=== PATIENT | female | born 1935 | race Caucasian/White ===

== ENCOUNTER → 2016-10-31 | Outpatient (CLI) | payer MEDICARE ==
[~2016-10-31] MED LIST: ALEN1TAB48 PO; AMLO5TAB2 PO; ASPI81CH3 CHEW; ATOR10TA15 PO; CALCTAB80 PO; CETI10 PO; CLON0.5T PO; CYAN25003 PO; FERR1TAB36 PO; HYOS0.37 PO; LISI-515 PO; LOPE7.5C PO; LOSA50TA PO; MELO-1 PO; MIRA25TA PO; MULT1TAB84 PO; NAPR220T95 PO; OCUVTAB PO; PANC3600 PO; REST0.05 EACH EYE; TRAM50TA PO; ZOLP10TA3 PO; ZYRT10CA PO; ZYRT10TA PO; vitamin b12 PO
[2016-10-31 13:17] LABS: MEAN CELL VOLUME 84.7 FL (80.0-100.0); MEAN CORPUSCULAR HEMOGLOBIN 28.4 PG (27.0-34.0); MEAN CORPUSCULAR HGB CONC 33.5 % (32.0-36.0); PLATELET COUNT 174 TH/MM3 (150-450); RED BLOOD COUNT 4.84 MIL/MM3 (4.00-5.30); RED CELL DISTRIBUTION WIDTH 13.6 % (11.6-17.2); REVIEW FLAG FINAL; WHITE BLOOD COUNT 5.5 TH/MM3 (4.0-11.0)
== END ==
LOC: PLAB 09:16
PROVIDERS: ATTEND Orthopaedic Surgery
DX: M23.241 Derangement of anterior horn of lateral meniscus due to old tear or injury, right knee (principal); M17.11 Unilateral primary osteoarthritis, right knee; I10 Essential (primary) hypertension
CPT/HCPCS: 36415; 85027

== ENCOUNTER → 2017-01-05 | Outpatient (CLI) | payer MEDICARE ==
[2017-01-05 12:29] LABS: MEAN CORPUSCULAR HEMOGLOBIN 28.7 PG (27.0-34.0); MEAN CORPUSCULAR HGB CONC 34.2 % (32.0-36.0); PLATELET COUNT 164 TH/MM3 (150-450); RED CELL DISTRIBUTION WIDTH 13.2 % (11.6-17.2); REVIEW FLAG FINAL; WHITE BLOOD COUNT 7.7 TH/MM3 (4.0-11.0)
[2017-01-05 13:04] LABS: ALKALINE PHOSPHATASE 99 U/L (45-117); ALT (GPT) 31 U/L (10-53); ANION GAP 8 MEQ/L (5-15); AST (GOT) 28 U/L (15-37); BICARBONATE 27.8 MEQ/L (21.0-32.0); BLOOD UREA NITROGEN 23 MG/DL (7-18); CHLORIDE 108 MEQ/L (98-107); GLOMERULAR FILTRATION RATE 56 ML/MIN (>89); GLUCOSE,FASTING 113 MG/DL (74-99); HDL CHOLESTEROL 58.7 MG/DL (40.0-60.0); LDL CHOLESTEROL 45 MG/DL (0-99); LDL CHOLESTEROL DIRECT 70 MG/DL (0-99); POTASSIUM 4.6 MEQ/L (3.5-5.1); SODIUM (NA) 144 MEQ/L (136-145); TOTAL BILIRUBIN ADULT 0.7 MG/DL (0.2-1.0)
[2017-01-05 13:45] LABS: HEMOGLOBIN A1a 0.7 %; HEMOGLOBIN A1b 1.6 %; HEMOGLOBIN Ao 85.3 %; HEMOGLOBIN P3 3.9 %
== END ==
LOC: PLAB 09:26
PROVIDERS: ATTEND Family Medicine
DX: E11.9 Type 2 diabetes mellitus without complications (principal); R53.83 Other fatigue; I10 Essential (primary) hypertension; E78.00 Pure hypercholesterolemia, unspecified
CPT/HCPCS: 36415; 80053; 80061; 83036; 83721; 84443; 85027

== ENCOUNTER → 2017-04-06 | Outpatient (CLI) | payer MEDICARE ==
[~2017-04-06] MED LIST changes: -CETI10 PO; -PANC3600 PO; -ZYRT10CA PO; -vitamin b12 PO
[2017-04-06 11:18] LABS: HEMATOCRIT 44.6 % (35.0-46.0); MEAN CELL VOLUME 85.7 FL (80.0-100.0); MEAN CORPUSCULAR HEMOGLOBIN 28.3 PG (27.0-34.0); PLATELET COUNT 143 TH/MM3 (150-450); RED CELL DISTRIBUTION WIDTH 13.6 % (11.6-17.2); REVIEW FLAG FINAL; WHITE BLOOD COUNT 6.9 TH/MM3 (4.0-11.0)
[2017-04-06 11:50] LABS: ANION GAP 9 MEQ/L (5-15); AST (GOT) 23 U/L (15-37); BICARBONATE 29.1 MEQ/L (21.0-32.0); BLOOD UREA NITROGEN 19 MG/DL (7-18); CHLORIDE 107 MEQ/L (98-107); GLOMERULAR FILTRATION RATE 62 ML/MIN (>89); GLUCOSE,FASTING 82 MG/DL (74-99); POTASSIUM 4.3 MEQ/L (3.5-5.1); SODIUM (NA) 145 MEQ/L (136-145)
[2017-04-06 12:02] LABS: ALKALINE PHOSPHATASE 98 U/L (45-117); ALT (GPT) 29 U/L (10-53); HDL CHOLESTEROL 61.6 MG/DL (40.0-60.0); LDL CHOLESTEROL 54 MG/DL (0-99); LDL CHOLESTEROL DIRECT 51 MG/DL (0-99); TOTAL BILIRUBIN ADULT 0.5 MG/DL (0.2-1.0)
[2017-04-06 16:28] LABS: HEMOGLOBIN A1a 0.8 %; HEMOGLOBIN A1b 1.6 %; HEMOGLOBIN Ao 85.3 %; HEMOGLOBIN LA1C 1.8 %; HEMOGLOBIN P3 3.9 %
== END ==
LOC: PLAB 09:58
PROVIDERS: ATTEND Family Medicine
DX: E11.9 Type 2 diabetes mellitus without complications (principal); R53.83 Other fatigue; E78.2 Mixed hyperlipidemia; I10 Essential (primary) hypertension
CPT/HCPCS: 36415; 80053; 80061; 83036; 83721; 84443; 85027

== ENCOUNTER 2017-05-30 08:47 | Emergency (ER) | payer MEDICARE ==
[2017-05-30 08:52] VITALS: BP 222/100; PULSE 66; RESP 18; TEMP 97.6
[2017-05-30 09:00] VITALS: RESP 18; O2SAT 99
[2017-05-30] MEDS ORDERED: SODIUM CHLOR 0.9% 1000 ML INJ 1,000 ML IV ONE (09:00)
[2017-05-30] MEDS ORDERED: ONDANSETRON HCL 4 MG/2 ML VIAL IVP ONE (09:00)
[2017-05-30] MEDS ORDERED: ENALAPRILAT 1.25 MG/ML VIAL IV PUSH ONE (09:00)
[2017-05-30] MEDS ORDERED: SODIUM CHLORIDE 0.9% FLUSH 10 ML FLUSH IVF PRN (09:00)
--- NOTE | 2017-05-30 09:01 | PD ---
HPI Chief Complaint: GI Complaint Time Seen by Provider: 08:50 Travel History International Travel<30 days: No Contact w/Intl Traveler<30days: No Traveled to known affect area: No History of Present Illness HPI The patient was seen and examined in the presence of the nurse. This patient is brought in by paramedics for 36 hours of nausea and vomiting and abdominal pain. Discomfort is in the right upper and left upper quadrants. She is not amenable to take her blood pressure medication today or yesterday due to vomiting. She did not have any fever or diarrhea today. She thinks she had an episode of diarrhea yesterday but says she "can't remember". Symptoms are moderately severe. No alleviating factors. She has no appendix and has had hernia surgery PFSH Past Medical History Hx Anticoagulant Therapy: Yes (ASPIRIN) Arthritis: Yes Blood Disorders: No Heart Rhythm Problems: No Cancer: No Cardiac Catheterization: No Cardiovascular Problems: Yes (HTN, CHOL) High Cholesterol: Yes Congestive Heart Failure: No Cerebrovascular Accident: No Diabetes: Yes (BORDERLINE) Diminished Hearing: Yes (BILAT HEARING AIDES) Endocrine: Yes Gastrointestinal Disorders: Yes (IBS) Glaucoma: Yes Genitourinary: No Headaches: Yes Hypertension: Yes Immune Disorder: No Inguinal Hernia: Yes Musculoskeletal: Yes Neurologic: Yes Psychiatric: No Reproductive: No Respiratory: No Seizures: No Menopausal: Yes Past Surgical History Abdominal Surgery: Yes (UMBILICAL HERNIA REPAIR, COLOSTOMY WITH REVERSAL, HERNIA SX X5) Appendectomy: Yes Coronary Artery Bypass Graft: No Genitourinary Surgery: Yes (BLADDER LIFT) Gynecologic Surgery: Yes (HYST-1984) Hysterectomy: Yes Oral Surgery: Yes (TONSILS-1941, APPY-1950; ) Pacemaker: No Tonsillectomy: Yes Other Surgery: Yes (DEVIATED SEPTUM-1959;) Social History Alcohol Use: Yes (OCC) Tobacco Use: No Substance Use: No Allergies-Medications (Allergen,Severity, Reaction): Coded Allergies: Hydrocodone (Verified Allergy, Severe, Nausea/Vomiting, 03/06/17) Lobster (Verified Allergy, Severe, VOMITING, 03/06/17) Morphine (Verified Allergy, Severe, VOMITING, 03/06/17) Dairy (Verified Allergy, Intermediate, Diarrhea, 03/06/17) *MDRO Multi-Drug Resistant Organism (Verified Allergy, Unknown, 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 Not to exceed 8 tablets per day. Aleve (Naproxen Sodium) 220 Mg Tab 440 Mg PO PRN PRN Myrbetriq (Mirabegron) 25 Mg Tab 25 Mg PO DAILY Zyrtec Allergy (Cetirizine HCl) 10 Mg Tab 10 Mg PO DAILY Restasis Opth 0.05% (Cyclosporine Opth 0.05%) 0.05% Emul 2 Drop EACH EYE BID Iron (Ferrous Sulfate) 325 Mg Tab 325 Mg PO DAILY Take Calcium 1000 + D (Calcium Carbonate-Cholecalciferol) 1,000-800 Mg-Unit Tab 1 Tab PO BID Multivitamin Adults (Multiple Vitamins W/ Minerals) 1 Tab 1 Tab PO DAILY Ocuvite (Multiple Vitamins W/ Minerals) 1 Tab 1 Tab PO DAILY Meloxicam 15 Mg Tab 15 Mg PO DAILY Aspirin 81 Low Dose (Aspirin) 81 Mg Chew 81 Mg CHEW DAILY Lisinopril 20 Mg Tab 20 Mg PO BID Hyoscyamine ER 12 HR (Hyoscyamine Sulfate) 0.375 Karli 0.375 Mg PO BID Alendronate (Alendronate Sodium) 70 Mg Tab 70 Mg PO Q7D Clonazepam 0.5 Mg Tab 0.5 Mg PO DAILY Atorvastatin (Atorvastatin Calcium) 10 Mg Tab 10 Mg PO HS Amlodipine (Amlodipine Besylate) 5 Mg Tab 5 Mg PO DAILY Losartan (Losartan Potassium) 50 Mg Tab 50 Mg PO DAILY Review of Systems General / Constitutional: No: Fever Eyes: No: Visual changes HENT: No: Headaches Cardiovascular: No: Chest Pain or Discomfort Respiratory: No: Shortness of Breath Gastrointestinal: Positive: Nausea, Vomiting, Abdominal Pain Genitourinary: No: Dysuria Musculoskeletal: No: Pain Skin: No Rash Neurologic: No: Weakness Psychiatric: No: Depression Endocrine: No: Polydipsia Hematologic/Lymphatic: No: Easy Bruising Physical Exam Narrative GENERAL: Well-nourished, well-developed patient with vomiting or abdominal pain. SKIN: Focused skin assessment reveals no rash and nodules. Skin is Warm and dry. HEAD: Atraumatic. Normocephalic. EYES: Pupils equal and round. No scleral icterus. No injection or drainage. ENT: No nasal bleeding or discharge. Mucous membranes pink and moist. NECK: Trachea midline. No JVD. CARDIOVASCULAR: Regular rate and rhythm. No murmur appreciated. RESPIRATORY: No accessory muscle use. Clear to auscultation. Breath sounds equal bilaterally. GASTROINTESTINAL: Abdomen soft, there is some left upper and right upper quadrant tenderness without rebound or guarding. Well-healed surgical scars. Abdomen is nondistended. Hepatic and splenic margins not palpable. MUSCULOSKELETAL: No obvious deformities. No clubbing. No cyanosis. No edema. NEUROLOGICAL: Awake and alert. No obvious cranial nerve deficits. Motor grossly within normal limits. Normal speech. PSYCHIATRIC: Appropriate mood and affect; insight and judgment normal. Data Data Last Documented VS Vital Signs Date Time Temp Pulse Resp B/P Pulse Ox O2 Delivery O2 Flow Rate FiO2 05/30/17 10:00 68 209/88 05/30/17 09:00 18 99 Room Air 05/30/17 08:52 97.6 Orders Complete Blood Count With Diff (05/30/17 08:52) Comprehensive Metabolic Panel (05/30/17 08:52) Lipase (05/30/17 08:52) Ct Abd/Pel W Iv Contrast(Rout) (05/30/17 ) Iv Access Insert/Monitor (05/30/17 08:52) Ecg Monitoring (05/30/17 08:52) Oximetry (05/30/17 08:52) NPO (05/30/17 08:52) Ondansetron Inj (Zofran Inj) (05/30/17 09:00) Sodium Chloride 0.9% Flush (Ns Flush) (05/30/17 09:00) Sodium Chlor 0.9% 1000 Ml Inj (Ns 1000 M (05/30/17 09:00) Enalaprilat Inj (Vasotec Inj) (05/30/17 09:00) Promethazine Inj (Phenergan Inj) (05/30/17 09:15) Prothrombin Time / Inr (Pt) (05/30/17 09:02) Act Partial Throm Time (Ptt) (05/30/17 09:02) Oral Contrast - Adult (05/30/17 09:18) Diatrizoate Jolantaq (Md Aviva Wild) (05/30/17 09:31) Iohexol 350 Inj (Omnipaque 350 Inj) (05/30/17 11:03) Labs Laboratory Tests Test 05/30/17 09:19 White Blood Count 7.0 TH/MM3 Red Blood Count 4.99 MIL/MM3 Hemoglobin 14.3 GM/DL Hematocrit 42.1 % Mean Corpuscular Volume 84.4 FL Mean Corpuscular Hemoglobin 28.7 PG Mean Corpuscular Hemoglobin 34.0 % Concent Red Cell Distribution Width 12.5 % Platelet Count 155 TH/MM3 Mean Platelet Volume 10.0 FL Neutrophils (%) (Auto) 79.4 % Lymphocytes (%) (Auto) 11.8 % Monocytes (%) (Auto) 6.5 % Eosinophils (%) (Auto) 1.9 % Basophils (%) (Auto) 0.4 % Neutrophils # (Auto) 5.6 TH/MM3 Lymphocytes # (Auto) 0.8 TH/MM3 Monocytes # (Auto) 0.5 TH/MM3 Eosinophils # (Auto) 0.1 TH/MM3 Basophils # (Auto) 0.0 TH/MM3 CBC Comment DIFF FINAL Differential Comment Prothrombin Time 11.9 SEC Prothromb Time International 1.1 RATIO Ratio Activated Partial 23.3 SEC Thromboplast Time Sodium Level 144 MEQ/L Potassium Level 3.7 MEQ/L Chloride Level 111 MEQ/L Carbon Dioxide Level 24.8 MEQ/L Anion Gap 8 MEQ/L Blood Urea Nitrogen 15 MG/DL Creatinine 0.78 MG/DL Estimat Glomerular Filtration 71 ML/MIN Rate Random Glucose 115 MG/DL Calcium Level 8.8 MG/DL Total Bilirubin 0.9 MG/DL Aspartate Amino Transf 24 U/L (AST/SGOT) Alanine Aminotransferase 23 U/L (ALT/SGPT) Alkaline Phosphatase 85 U/L Total Protein 7.0 GM/DL Albumin 3.5 GM/DL Lipase 147 U/L MDM Medical Decision Making Medical Screen Exam Complete: Yes Emergency Medical Condition: Yes Medical Record Reviewed: Yes Differential Diagnosis Colitis, ileus, obstruction, cholecystitis, food poisoning Narrative Course I have reviewed the patient's electronic medical record. IV placed I gave her IV Zofran and IM Phenergan and 1 L normal saline IV CBC is normal metabolic profile is normal LFT's are normal lipase is normal CT of abdomen and pelvis with IV contrast shows nothing emergent but multiple incidental findings which I reviewed with the patient. I encouraged her to discuss them with Dr. Nunez her primary physician. Zofran prescribed I have recommended clear liquids for 24 hours, then gradually advance as tolerated. Diagnosis Primary Impression: Acute bilateral upper abdominal pain Additional Impression: Nausea and vomiting in adult patient Additional Instructions: The patient was advised to follow up with their physician and return if they worsen. I have recommended clear liquids for 24 hours, then gradually advance as tolerated. Med/Other Pt SpecificInfo: Prescription(s) given Scripts Ondansetron (Zofran)4 Mg Tab4 Mg PO Q6HR PRN (NAUSEA OR VOMITING) #12 TAB Ref 0 Prov:Alvin Linn MD 05/30/17 Disposition: 01 DISCHARGE HOME Condition: Stable Alvin Linn MD May 30, 2017 09:01
[2017-05-30] MEDS ORDERED: PROMETHAZINE INJ 25 MG/ML VIAL IM ONE (09:15)
[2017-05-30] MEDS ORDERED: DIATRIZOATE MEGLUM/DIATRIZOATE SOD 9 ML CUP ONE (09:31)
[2017-05-30 09:40] LABS: AUTOMATED NEUTROPHIL # 5.6 TH/MM3 (1.8-7.7); BASOPHIL % 0.4 % (0.0-2.0); EOSINOPHIL # 0.1 TH/MM3 (0-0.4); EOSINOPHIL % 1.9 % (0.0-4.0); HEMATOCRIT 42.1 % (35.0-46.0); HEMO FLAGS DIFF FINAL; LYMPH % 11.8 % (9.0-44.0); LYMPHOCYTE # 0.8 TH/MM3 (1.0-4.8); MEAN CELL VOLUME 84.4 FL (80.0-100.0); MEAN CORPUSCULAR HEMOGLOBIN 28.7 PG (27.0-34.0); MONO % 6.5 % (0.0-8.0); NEUT % 79.4 % (16.0-70.0); PLATELET COUNT 155 TH/MM3 (150-450); RED BLOOD COUNT 4.99 MIL/MM3 (4.00-5.30); RED CELL DISTRIBUTION WIDTH 12.5 % (11.6-17.2)
[2017-05-30 09:51] LABS: APTT (PATIENT) 23.3 SEC (24.3-30.1); INTERNATIONAL NORMALIZED RATIO 1.1 RATIO; PROTHROMBIN TIME - PATIENT 11.9 SEC (9.8-11.6)
[2017-05-30 09:52] LABS: BICARBONATE 24.8 MEQ/L (21.0-32.0); BLOOD UREA NITROGEN 15 MG/DL (7-18)
[2017-05-30 09:55] LABS: ALT (GPT) 23 U/L (10-53); AST (GOT) 24 U/L (15-37); GLOMERULAR FILTRATION RATE 71 ML/MIN (>89)
[2017-05-30 09:56] LABS: TOTAL BILIRUBIN ADULT 0.9 MG/DL (0.2-1.0)
[2017-05-30 09:58] LABS: ALKALINE PHOSPHATASE 85 U/L (45-117)
[2017-05-30 10:00] VITALS: BP 209/88; PULSE 68
[2017-05-30 10:00] LABS: ANION GAP 8 MEQ/L (5-15); CHLORIDE 111 MEQ/L (98-107); POTASSIUM 3.7 MEQ/L (3.5-5.1); SODIUM (NA) 144 MEQ/L (136-145)
[2017-05-30] MEDS ORDERED: IOHEXOL 350 MG/ML 10 ML VIAL (for RAD DIAG) IV ONE (11:03)
--- NOTE | 2017-05-30 11:14 | RADRPT ---
EXAM DATE/TIME: 05/30/2017 10:37 [facility] COMPARISON: CT ABDOMEN & PELVIS W/O CONTRAST, January 14, 2014, 0:45. INDICATIONS : Nausea,vomiting, abdominal pain. IV CONTRAST: 100 cc Omnipaque 350 (iohexol) IV ORAL CONTRAST: Prescribed oral contrast ingested. RADIATION DOSE: 17.03 CTDIvol (mGy) MEDICAL HISTORY : Hypertension. Irritable bowel syndrome. SURGICAL HISTORY : Colostomy. Umbilical hernia repair.Hysterectomy.Back. ENCOUNTER: Initial ACUITY: 3 days PAIN SCALE: 5/10 LOCATION: Bilateral abdomen TECHNIQUE: Volumetric scanning of the abdomen and pelvis was performed. Using automated exposure control and ad justment of the mA and/or kV according to patient size, radiation dose was kept as low as reasonably achievable to obtain optimal diagnostic quality images. DICOM format image data is available electro nically for review and comparison. FINDINGS: LOWER LUNGS: The visualized lower lungs are clear. LIVER: Homogeneous density with 5 mm low-density lesion at the liver dome that is too small to characterize. There is a 19 mm cyst in the left lobe. There is no dilation of the biliary tree. No calcified gal lstones. SPLEEN: Normal size without lesion. PANCREAS: Within normal limits. KIDNEYS: Normal in size and shape. There is no mass, stone or hydronephrosis. There are bilateral renal low d ensity lesions are characteristic of cysts. The largest in the right kidney measures 4.8 cm and the l argest in the left kidney measures 8 cm. ADRENAL GLANDS: Within normal limits. VASCULAR: There is no aortic aneurysm. There is a moderate to severe atherosclerotic disease. BOWEL/MESENTERY: The stomach, small bowel, and colon demonstrate no acute abnormality. There is no free intraperitone al air or fluid. A small hiatal hernia is present. There is sigmoid diverticulosis. ABDOMINAL WALL: Postsurgical changes are present anteriorly. RETROPERITONEUM: There is no lymphadenopathy. BLADDER: No wall thickening or mass. Calcification adjacent to the urethra may represent a stone in a urethral diverticulum. Small loculate air is present within the urinary bladder lumen. REPRODUCTIVE: Uterus is absent. No adnexal abnormality is visualized. INGUINAL: There is no lymphadenopathy or hernia. MUSCULOSKELETAL: There is a dextroscoliosis with degenerative change and there are is posterior hardware consisting of pedicular screws at L3 and L4. Bone graft harvest site is visualized on the right posterior iliac bryan ne. CONCLUSION: 1. No acute finding is identified within the abdomen or pelvis to explain the clinical symptoms. 2. Small locule of air in the urinary bladder. Presumably this is related to recent catheterization. There are no other findings present to suggest a fistula. 3. Nonacute findings include multiple bilateral renal cysts, moderate to severe atherosclerotic disea se, small hiatal hernia, sigmoid diverticulosis, and possible urethral diverticulum. Wero Moyer MD on May 30, 2017 at 11:05 Board Certified Radiologist. This report was verified electronically.
[2017-05-30] MEDS ORDERED: ZOFR4TAB PO (11:33)
[2017-05-30 11:56] VITALS: BP 165/80
== END 2017-05-30 11:57 | disposition home or self-care (01) ==
LOC: PHED 08:47
DX: R10.11 Right upper quadrant pain (principal); R10.12 Left upper quadrant pain; R11.2 Nausea with vomiting, unspecified; I10 Essential (primary) hypertension
CPT/HCPCS: 74177; 80053; 83690; 85025; 85610; 85730; 96361; 96372; 96374; 96375; 99285; J2405; J2550; J7030; Q9963; Q9967

== ENCOUNTER → 2017-07-02 | Outpatient (CLI) | payer MEDICARE ==
[~2017-07-02] MED LIST changes: +ALEV220T14 PO; +CETI10 PO; +FERR325C PO; +LOPE-1 PO; +MULTTAB67 PO; +OXYB10TA PO; +TRAZ50TA12 PO; +VITA20004 PO; +ZOFR4TAB PO
[2017-07-02 11:42] LABS: AUTOMATED NEUTROPHIL # 3.9 TH/MM3 (1.8-7.7); BASOPHIL % 0.4 % (0.0-2.0); EOSINOPHIL # 0.2 TH/MM3 (0-0.4); EOSINOPHIL % 3.7 % (0.0-4.0); HEMATOCRIT 40.2 % (35.0-46.0); HEMO FLAGS DIFF FINAL; LYMPH % 19.1 % (9.0-44.0); LYMPHOCYTE # 1.1 TH/MM3 (1.0-4.8); MEAN CELL VOLUME 84.8 FL (80.0-100.0); MEAN CORPUSCULAR HEMOGLOBIN 29.2 PG (27.0-34.0); MEAN CORPUSCULAR HGB CONC 34.4 % (32.0-36.0); NEUT % 67.8 % (16.0-70.0); PLATELET COUNT 156 TH/MM3 (150-450); RED BLOOD COUNT 4.74 MIL/MM3 (4.00-5.30); RED CELL DISTRIBUTION WIDTH 12.5 % (11.6-17.2); WHITE BLOOD COUNT 5.8 TH/MM3 (4.0-11.0)
--- NOTE | 2017-07-03 11:58 | EKG ---
Date Performed: 07/02/2017 Time Performed: 11:19:32 PTAGE: 82 years EKG: SINUS BRADYCARDIA LEFT AXIS DEVIATION ABNORMAL ECG PREVIOUS TRACING : 06/17/2016 23.17 No significant change from previous tracing noted. DOCTOR: Manas Mathias Interpretating Date/Time 07/03/2017 11:56:21
== END ==
LOC: PHPRE 10:05
PROVIDERS: ATTEND Ophthalmology
DX: Z01.810 Encounter for preprocedural cardiovascular examination (principal); Z01.812 Encounter for preprocedural laboratory examination; I10 Essential (primary) hypertension; R94.31 Abnormal electrocardiogram [ECG] [EKG]
CPT/HCPCS: 36415; 85025; 93005

== ENCOUNTER → 2017-07-09 | Outpatient (CLI) | payer MEDICARE ==
[~2017-07-09] MED LIST changes: -CYAN25003 PO; -FERR1TAB36 PO; -LOPE7.5C PO; -MIRA25TA PO; -MULT1TAB84 PO; -NAPR220T95 PO; -TRAM50TA PO; -ZOLP10TA3 PO; -ZYRT10TA PO
[2017-07-09 13:11] LABS: HEMATOCRIT 42.2 % (35.0-46.0); MEAN CELL VOLUME 87.3 FL (80.0-100.0); MEAN CORPUSCULAR HEMOGLOBIN 29.5 PG (27.0-34.0); MEAN CORPUSCULAR HGB CONC 33.8 % (32.0-36.0); PLATELET COUNT 150 TH/MM3 (150-450); RED BLOOD COUNT 4.83 MIL/MM3 (4.00-5.30); RED CELL DISTRIBUTION WIDTH 13.4 % (11.6-17.2); REVIEW FLAG FINAL; WHITE BLOOD COUNT 5.9 TH/MM3 (4.0-11.0)
[2017-07-09 13:27] LABS: ANION GAP 3 MEQ/L (5-15); AST (GOT) 22 U/L (15-37); BICARBONATE 31.5 MEQ/L (21.0-32.0); BLOOD UREA NITROGEN 24 MG/DL (7-18); CHLORIDE 106 MEQ/L (98-107); GLOMERULAR FILTRATION RATE 73 ML/MIN (>89); GLUCOSE,FASTING 87 MG/DL (74-99); POTASSIUM 3.9 MEQ/L (3.5-5.1); SODIUM (NA) 140 MEQ/L (136-145)
[2017-07-09 13:39] LABS: ALKALINE PHOSPHATASE 90 U/L (45-117); ALT (GPT) 21 U/L (10-53); HDL CHOLESTEROL 59.6 MG/DL (40.0-60.0); LDL CHOLESTEROL 38 MG/DL (0-99); LDL CHOLESTEROL DIRECT 49 MG/DL (0-99); TOTAL BILIRUBIN ADULT 0.5 MG/DL (0.2-1.0)
[2017-07-09 16:17] LABS: HEMOGLOBIN A1a 0.9 %; HEMOGLOBIN A1b 1.5 %; HEMOGLOBIN Ao 86.2 %; HEMOGLOBIN LA1C 1.9 %; HEMOGLOBIN P3 3.7 %
== END ==
LOC: PLAB 09:32
PROVIDERS: ATTEND Family Medicine
DX: E11.9 Type 2 diabetes mellitus without complications (principal); R53.83 Other fatigue; E78.2 Mixed hyperlipidemia; I10 Essential (primary) hypertension
CPT/HCPCS: 36415; 80053; 80061; 83036; 83721; 84443; 85027

== ENCOUNTER → 2017-07-20 | Day surgery (SDC) | payer MEDICARE ==
--- NOTE | 2017-07-14 11:25 | MH ---
cc: [facility], DON DOMÍNGUEZ DATE OF ADMISSION: 07/20/2017 ADMISSION DIAGNOSIS Cataract, right eye. HISTORY OF PRESENT ILLNESS This 82-year-old white female is coming through [facility] for the purpose of a lens extraction of the right eye with intraocular lens implant under local anesthesia. She has noticed decreasing visual acuity interfering with her daily activities and elected to have the above procedure. Her best-corrected visual acuity in room light is 20/40 in the right eye and 20/40 -2 in the left. PAST MEDICAL HISTORY The patient has a history of hypertension, arthritis, allergies, back problems, right shoulder problems, cholesterol problems and food poisoning. PAST SURGICAL HISTORY Her surgical history includes tonsillectomy, appendectomy, hysterectomy, hernia surgery, bowel surgery twice, right knee arthroscopic surgery, urinary surgery, right shoulder torn ligament surgery, right knee surgery a second time. MEDICATIONS Daily medications include: 1. Losartan. 2. Amlodipine. 3. Atorvastatin. 4. Clonazepam. 5. Alendronate. 6. Hyoscyamine. 7. Lisinopril. 8. Baby aspirin. 9. Meloxicam. 10. Ocuvite. 11. Cetirizine. 12. Multivitamins. 13. Calcium with D. 14. Iron. 15. Vitamin-B12. 16. Restasis eye drops twice a day. 17. Aleve. 18. Imodium. 19. Zyrtec p.r.n. 20. Zolpidem. 21. Trazodone. 22. Tramadol. 23. Oxybutynin. ALLERGIES 1. CODEINE AND ITS DERIVATIVES. 2. HYDROCODONE. 3. LOBSTER. 4. DAIRY. SOCIAL HISTORY She does not smoke or drink. FAMILY HISTORY Positive for mother and sister with cataract. REVIEW OF SYSTEMS HEAD: The patient had a head injury on June 04. She hit her head on a shelf. Patient denies severe headaches or dizziness. EARS: She has hearing loss. Denies ear pain, discharge or ringing in the ears. NOSE: Patient denies nasal discharge, obstruction or frequent colds. MOUTH AND THROAT: Patient denies soreness of the mouth or tongue, bleeding gums, trouble swallowing, changes in voice or sore throat. NECK: Patient denies neck pain or swelling, limitation of neck movement or neck injury. CARDIOPULMONARY SYSTEM: She gets some sputum production from postnasal drip with her allergies. Denies shortness of breath, orthopnea, chronic cough, hemoptysis, chest pain, wheezing, palpitations or light-headedness. GI SYSTEM: She has a poor appetite and hemorrhoids. Denies nausea, vomiting, abdominal pain, ulcers, or change in bowel habits. SYSTEM: She has urinary frequency, taking the oxybutynin, gets up at night once to urinate. Denies dysuria or change in urine color. NERVOUS SYSTEM: Patient denies convulsions, vertigo, stroke, numbness or weakness. PHYSICAL EXAMINATION VITAL SIGNS: Blood pressure 134/90, pulse 72, respirations 20. HEAD: Normocephalic, atraumatic. NOSE: Without rhinorrhea. THROAT: Clear. NECK: Supple. CHEST: Clear. HEART: Regular rhythm. ABDOMEN: Without tenderness. EXTREMITIES: Without edema. NEUROLOGIC: Within normal limits. MENTAL STATUS: Within normal limits. EYE EXAM: The patient's best-corrected visual acuity in room light is 20/40 in the right eye and 20/40 -2 in the left. Visual mccollum are full to confrontation testing. Extraocular muscle exam reveals full versions with orthophoria at distance and near. Pupils are 4 mm equal, round, reactive to light without afferent defect. Anterior segment examination reveals a corneal opacity inferiorly in the right eye. There are nuclear sclerotic and cortical cataract changes bilaterally. Intraocular pressure is 20 in each eye by applanation tonometry. Dilated fundus exam revealed sharp disks with cup-to-disk ratio of 0.35 in the right eye and 0.5 in the left. The macula has some granularity present in both eyes. A posterior vitreous detachment is present bilaterally with a vitreous floater in the right eye. IMPRESSION 1. Bilateral cataracts. 2. Posterior vitreous detachment, both eyes. 3. History of branch retinal vein occlusion, right eye. 4. Glaucoma suspect, high-risk. PLAN Lens extraction of the right eye with intraocular lens implant under local anesthesia through [facility]. The patient has been cleared medically. She has been counseled as to the risks, benefits and alternatives and elected to proceed. I feel that cataract surgery will improve the quality of life and activities of daily living in this patient. MD BERNABE Maxwell/HALLE /10:48 AM /11:08 AM
[~2017-07-20] VITALS: Ht 162.6 cm; Wt 72.0 kg
[~2017-07-20] MED LIST changes: +ACETYLCHOLINE CHL OPHT SOLN 1:100 2 ML VIAL ONE; +CHLORHEXIDINE GLUCONATE 2 % 1 PACK (2 CLOTHS) TOPICAL PRN; +EPINEPHrine HCL (1:1000) 1 MG/ML VIAL ONE; +HYALURONIDASE/LIDOCAINE/BUPIVACAINE 4.5 ML SYR RIGHT EYE ONE; +HYALURONIDASE/LIDOCAINE/BUPIVACAINE 6 ML SYR RIGHT EYE ONE; +INSULIN HUMAN REGULAR 1,000 UNITS/10 ML VIAL SQ PRN; +LACTATED RINGER'S 1000 ML IV PRN; +METOPROLOL TARTRATE 25 MG TAB PO PRN; +PILOCARPINE HCL 2% OPHT SOLN 15 ML BTL ONE; +POVIDONE IODINE 5% (ANTISEPSIS KIT) 4 APPLICATIONS EACH NARE PRN; +PROPARACAINE HCL 0.5% OPHT SOLN 15 ML BTL RIGHT EYE ONE; +PROPOFOL 200 MG/20 ML AMP ONE; +SODIUM CHLORID 0.9% 500 ML IV PRN; +TOBRAMYCIN/DEXAMETHASONE OPTH OINT 3.5 GM TUBE ONE; +VISCOAT OPHT IRRIG SOLN 0.75 ML SYRINGE ONE; +acetaZOLAMIDE SEQUELS 500 MG SUSTAINED RELEASE CAP ONE; +hydrALAZINE HCL 20 MG/ML VIAL IV ONE
[2017-07-20 08:17] VITALS: PULSE 73
[2017-07-20] MEDS: TROPICAMIDE 1% OPHT SOLN 15 ML BTL RIGHT EYE SCH ×4 (08:35→08:44)
[2017-07-20] MEDS: DICLOFENAC SOD 0.1% OPHT SOLN 2.5 ML BTL RIGHT EYE SCH ×4 (08:35→08:44)
[2017-07-20] MEDS: CYCLOPENTOLATE HCL 1% OPHT SOLN 2 ML BTL RIGHT EYE SCH ×4 (08:35→08:44)
[2017-07-20] MEDS: PHENYLEPHRINE HCL 2.5% OPTH SOLN 2 ML BTL RIGHT EYE SCH ×4 (08:35→08:44)
[2017-07-20] MEDS: GATIFLOXACIN 0.5% OPHT SOLN 2.5 ML BTL RIGHT EYE SCH ×4 (08:35→08:44)
[2017-07-20 09:10] VITALS: PULSE 73
[2017-07-20 09:15] VITALS: PULSE 80
[2017-07-20 09:30] VITALS: PULSE 85
[2017-07-20 11:25] VITALS: TEMP 98.1
[2017-07-20 11:50] VITALS: BP 155/91; PULSE 74; RESP 16; O2SAT 100
--- NOTE | 2017-07-20 12:48 | MP ---
cc: DON CARDOSO DATE OF SURGERY July 20, 2017 PREOPERATIVE DIAGNOSIS: Cataract right eye. POSTOPERATIVE DIAGNOSIS: Cataract right eye. OPERATION: Extracapsular cataract extraction with posterior chamber intraocular lens implant by phacoemulsification, right eye. SURGEON: Don Cardoso M.D. ANESTHESIA: Local. COMPLICATIONS: None. INDICATIONS: See history and physical previously dictated. OPERATIVE PROCEDURE: The patient had adequate retrobulbar and eyelid blocks administered in the holding area and was brought to the operating room. The right eye was prepped and draped in the usual sterile ophthalmic manner. A lid speculum was inserted in the right eye. A 4-0 silk bridle suture was placed through the conjunctiva near the superior rectus muscle and it was tagged to the drape. A fornix-based conjunctival flap was prepared spanning approximately 5 mm in width. Hemostasis was obtained with wet-field cautery. A 3.5 mm groove was made 1 mm from the limbus and dissected up to the limbus in the form of a scleral pocket incision. A stab incision was then made at the 2 o'clock position. Viscoelastic was injected into the anterior chamber. The anterior chamber was entered with a 2.75 mm keratome through the scleral pocket incision. A 360 degree continuous curvilinear capsulorrhexis was then performed. Hydrodissection was utilized to divide the nucleus into inner and outer components and to separate the cortex from the capsule. Phacoemulsification was then utilized to remove the nucleus. The outer nuclear layer was removed with irrigation and aspiration and short bursts of ultrasound as necessary. The cortex was removed with the irrigation/aspiration handpiece. The posterior capsule was polished with the capsule polisher. Viscoelastic was injected into the capsular bag. The intraocular lens was inspected and found to be in good condition. The lens utilized was an Fredrick, model number [id number] with a power of +23 diopters. The lens was inserted into the capsular bag. The viscoelastic in the anterior chamber was then removed with the irrigation-aspiration handpiece. Viscoelastic was also removed from beneath the intraocular lens. The anterior chamber was filled with Miochol-E through the stab incision and pressurized. The wound was checked for leaks at this pressure and normalized pressure and there were none. The 4-0 bridle suture was removed. The conjunctival flap was brought down over the wound and secured with cautery. Pilocarpine 2% eye drops were instilled topically. The lid speculum was removed. TobraDex ophthalmic ointment was applied. The eye was double patched and shielded. The patient tolerated the procedure well and left the Operating Room in satisfactory condition. DonMD BERNABE Erickson/[place] /11:26 AM /12:41 PM
== END | disposition home or self-care (01) ==
LOC: PHSDC 07:46
PROVIDERS: ATTEND Ophthalmology
DX: H26.9 Unspecified cataract (principal); I10 Essential (primary) hypertension; H43.813 Vitreous degeneration, bilateral; E11.9 Type 2 diabetes mellitus without complications; K21.9 Gastro-esophageal reflux disease without esophagitis; M19.90 Unspecified osteoarthritis, unspecified site; Z79.82 Long term (current) use of aspirin; Z79.1 Long term (current) use of non-steroidal anti-inflammatories (NSAID); Z79.899 Other long term (current) drug therapy
CPT/HCPCS: 00142; 66984; J0171; J0360; J7040; V2632

== ENCOUNTER 2017-09-02 13:08 | Observation (INO) | payer MEDICARE ==
[~2017-09-02] VITALS: Ht 160 cm; Wt 70.2 kg
[2017-09-02] VITALS (11 sets, daily range): BP systolic 111–172; BP diastolic 56–76; PULSE 12–72; RESP 12–18; TEMP 97.2–98.1; O2SAT 94–97
[~2017-09-02 13:08] MED LIST changes: -ACETYLCHOLINE CHL OPHT SOLN 1:100 2 ML VIAL ONE; +ASPI1CHW4 CHEW; -ASPI81CH3 CHEW; -CHLORHEXIDINE GLUCONATE 2 % 1 PACK (2 CLOTHS) TOPICAL PRN; -EPINEPHrine HCL (1:1000) 1 MG/ML VIAL ONE; -HYALURONIDASE/LIDOCAINE/BUPIVACAINE 4.5 ML SYR RIGHT EYE ONE; -HYALURONIDASE/LIDOCAINE/BUPIVACAINE 6 ML SYR RIGHT EYE ONE; -INSULIN HUMAN REGULAR 1,000 UNITS/10 ML VIAL SQ PRN; -LACTATED RINGER'S 1000 ML IV PRN; -MELO-1 PO; +MELO15TA20 PO; -METOPROLOL TARTRATE 25 MG TAB PO PRN; -PILOCARPINE HCL 2% OPHT SOLN 15 ML BTL ONE; -POVIDONE IODINE 5% (ANTISEPSIS KIT) 4 APPLICATIONS EACH NARE PRN; -PROPARACAINE HCL 0.5% OPHT SOLN 15 ML BTL RIGHT EYE ONE; -PROPOFOL 200 MG/20 ML AMP ONE; -SODIUM CHLORID 0.9% 500 ML IV PRN; -TOBRAMYCIN/DEXAMETHASONE OPTH OINT 3.5 GM TUBE ONE; -VISCOAT OPHT IRRIG SOLN 0.75 ML SYRINGE ONE; -acetaZOLAMIDE SEQUELS 500 MG SUSTAINED RELEASE CAP ONE; -hydrALAZINE HCL 20 MG/ML VIAL IV ONE
[2017-09-02] MEDS ORDERED: TRAM50TA PO (14:06)
--- NOTE | 2017-09-02 14:06 | PD ---
HPI Chief Complaint: Chest Pain Time Seen by Provider: 14:01 Travel History International Travel<30 days: No Contact w/Intl Traveler<30days: No Traveled to known affect area: No History of Present Illness HPI 82 year old female presents with an episode of chest pain just prior to arrival. Patient states that she was in the car driving when she suddenly felt pressure-like pain in her chest that radiated to her neck. She rated the pain as 5-6/10. The episode lasted fewer than 5 minutes and she is currently asymptomatic. She has been under a lot stress lately packing and preparing to move to [place] with her children. She denies any prior episodes of chest pain or panic attacks, shortness of breath, headache, dizziness, nausea or vomiting. Modifying Factors: None Associated Signs & Symptoms: Chest pain episode Risk Factors: None PFSH Past Medical History Hx Anticoagulant Therapy: Yes (ASPIRIN) Arthritis: Yes Blood Disorders: No Anxiety: Yes Heart Rhythm Problems: No Cancer: No Cardiac Catheterization: No Cardiovascular Problems: Yes (HTN, CHOL) High Cholesterol: Yes Congestive Heart Failure: No Cerebrovascular Accident: No Diabetes: Yes (DIET CONTROLLED) Patient Takes Glucophage: No Diminished Hearing: Yes (BILAT HEARING AIDES) Endocrine: No Gastrointestinal Disorders: Yes (IBS) Glaucoma: Yes Genitourinary: Yes (HX OF URINARY FREQUENCY AT NIGHT) Headaches: Yes Hepatitis: No Hiatal Hernia: No Hypertension: Yes Immune Disorder: No Inguinal Hernia: Yes Medical other: Yes (INSOMNIA) Musculoskeletal: Yes (ARTHRITIS) Neurologic: No Psychiatric: Yes (ANXIETY) Reproductive: No Respiratory: No Seizures: No Thyroid Disease: No Menopausal: Yes Past Surgical History Abdominal Surgery: Yes (UMBILICAL HERNIA REPAIR, COLOSTOMY WITH REVERSAL, HERNIA SX X5) AICD: No Appendectomy: Yes Body Medical Devices: LUMBAR CAGE Coronary Artery Bypass Graft: No Genitourinary Surgery: Yes (BLADDER LIFT) Gynecologic Surgery: Yes (HYST-1984) Hysterectomy: Yes Joint Replacement: No Oral Surgery: Yes (TONSILS-194, APPY-1949; ) Pacemaker: No Tonsillectomy: Yes Other Surgery: Yes (DEVIATED SEPTUM-1959;) Social History Alcohol Use: Yes (OCC) Tobacco Use: No Substance Use: No Allergies-Medications (Allergen,Severity, Reaction): Coded Allergies: hydrocodone (Unverified Allergy, Severe, Nausea/Vomiting, 09/02/17) morphine (Unverified Allergy, Severe, VOMITING, 09/02/17) shellfish derived (Unverified Allergy, Severe, VOMITING, 09/02/17) lactose (Unverified Allergy, Intermediate, Diarrhea, 09/02/17) *MDRO Multi-Drug Resistant Organism (Verified Allergy, Unknown, 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 Not to exceed 8 tablets per day. Aleve Arthritis (Naproxen Sodium) 220 Mg Tab 220 Mg PO BID PRN Vitamin B-12 ER (Cyanocobalamin) 2,000 Mcg Tab 2,500 Mcg PO DAILY Iron (Ferrous Sulfate) 325 Mg Cap 65 Mg PO DAILY Multiple Vitamin 1 Tab 1 Tab PO DAILY Oxybutynin ER 24 HR (Oxybutynin Chloride) 10 Mg Tab 10 Mg PO DAILY Trazodone (Trazodone HCl) 50 Mg Tab 50 Mg PO HS Restasis Opth 0.05% (Cyclosporine Opth 0.05%) 0.05% Emul 2 Drop EACH EYE BID Calcium 1000 + D (Calcium Carbonate-Cholecalciferol) 1,000-800 Mg-Unit Tab 1 Tab PO BID Ocuvite (Multiple Vitamins W/ Minerals) 1 Tab 1 Tab PO DAILY Meloxicam 15 Mg Tab 150 Mg PO DAILY Aspirin 81 Low Dose (Aspirin) 81 Mg Chew 81 Mg CHEW DAILY Lisinopril 20 Mg Tab 40 Mg PO DAILY Hyoscyamine ER 12 HR (Hyoscyamine Sulfate) 0.375 Karli 0.375 Mg PO BID Alendronate (Alendronate Sodium) 70 Mg Tab 70 Mg PO Q7D Clonazepam 0.5 Mg Tab 0.5 Mg PO DAILY Atorvastatin (Atorvastatin Calcium) 10 Mg Tab 10 Mg PO HS Amlodipine (Amlodipine Besylate) 5 Mg Tab 5 Mg PO DAILY Losartan (Losartan Potassium) 50 Mg Tab 50 Mg PO DAILY Review of Systems Except as stated in HPI: all other systems reviewed are Neg Physical Exam Narrative GENERAL: well-developed, well- nourished, pleasant elderly white female patient , in no acute distress. Awake and oriented 3. SKIN: Warm and dry. HEAD: Atraumatic. Normocephalic. EYES: Pupils equal and round. No scleral icterus. No injection or drainage. ENT: No nasal bleeding or discharge. Mucous membranes pink and moist. NECK: Trachea midline. No JVD. CARDIOVASCULAR: Regular rate and rhythm. Pulses are present and equal bilaterally. RESPIRATORY: No accessory muscle use. Clear to auscultation. Breath sounds equal bilaterally. GASTROINTESTINAL: Abdomen soft, non-tender, nondistended. Hepatic and splenic margins not palpable. MUSCULOSKELETAL: Extremities without clubbing, cyanosis, or edema. No obvious deformities. NEUROLOGICAL: Awake and alert. No obvious cranial nerve deficits. Motor grossly within normal limits. Five out of 5 muscle strength in the arms and legs bilaterally. Normal speech. PSYCHIATRIC: Appropriate mood and affect; insight and judgment normal. Data Data Last Documented VS Vital Signs Date Time Temp Pulse Resp B/P (MAP) Pulse Ox O2 Delivery O2 Flow Rate FiO2 09/02/17 15:05 142/64 (90) 140/62 (88) 09/02/17 14:05 96 Room Air 09/02/17 14:02 68 16 09/02/17 13:30 98.0 Orders Orders Electrocardiogram (09/02/17 14:01) Basic Metabolic Panel (Bmp) (09/02/17 14:01) Ckmb (Isoenzyme) Profile (09/02/17 14:01) Complete Blood Count With Diff (09/02/17 14:) Magnesium (Mg) (09/02/17 14:01) Prothrombin Time / Inr (Pt) (09/02/17 14:) Act Partial Throm Time (Ptt) (09/02/17 14:01) Troponin I (09/02/17 14:01) Chest, Single Ap (09/02/17 14:01) Ecg Monitoring (09/02/17 14:) Bilateral Bp Monitoring (09/02/17 14:) Iv Access Insert/Monitor (09/02/17 14:) Oximetry (09/02/17 14:01) Oxygen Administration (09/02/17 14:) Sodium Chloride 0.9% Flush (Ns Flush) (09/02/17 14:15) CKMB (09/02/17 14:15) CKMB% (09/02/17 14:15) Labs Laboratory Tests Test 09/02/17 14:15 White Blood Count 5.4 TH/MM3 Red Blood Count 4.78 MIL/MM3 Hemoglobin 13.9 GM/DL Hematocrit 40.7 % Mean Corpuscular Volume 85.0 FL Mean Corpuscular Hemoglobin 29.1 PG Mean Corpuscular Hemoglobin Concent 34.3 % Red Cell Distribution Width 12.8 % Platelet Count 183 TH/MM3 Mean Platelet Volume 10.5 FL Neutrophils (%) (Auto) 66.3 % Lymphocytes (%) (Auto) 21.7 % Monocytes (%) (Auto) 9.4 % Eosinophils (%) (Auto) 2.2 % Basophils (%) (Auto) 0.4 % Neutrophils # (Auto) 3.6 TH/MM3 Lymphocytes # (Auto) 1.2 TH/MM3 Monocytes # (Auto) 0.5 TH/MM3 Eosinophils # (Auto) 0.1 TH/MM3 Basophils # (Auto) 0.0 TH/MM3 CBC Comment DIFF FINAL Differential Comment Prothrombin Time 11.5 SEC Prothromb Time International Ratio 1.0 RATIO Activated Partial Thromboplast Time 21.7 SEC Blood Urea Nitrogen 29 MG/DL Creatinine 0.95 MG/DL Random Glucose 116 MG/DL Calcium Level 9.4 MG/DL Magnesium Level 1.9 MG/DL Sodium Level 143 MEQ/L Potassium Level 4.3 MEQ/L Chloride Level 109 MEQ/L Carbon Dioxide Level 28.7 MEQ/L Anion Gap 5 MEQ/L Estimat Glomerular Filtration Rate 56 ML/MIN Total Creatine Kinase 106 U/L Creatine Kinase MB 2.4 NG/ML Troponin I LESS THAN 0.02 NG/ML MDM Medical Decision Making Medical Screen Exam Complete: Yes Emergency Medical Condition: Yes Medical Record Reviewed: Yes Interpretation(s) EKG shows NSR, no ST elevation or depression, and no arrhythmias. No significant T-wave inversions. Laboratory Tests Test 09/02/17 14:15 Monocytes (%) (Auto) 9.4 % (0.0-8.0) Activated Partial Thromboplast Time 21.7 SEC (24.3-30.1) Blood Urea Nitrogen 29 MG/DL (7-18) Random Glucose 116 MG/DL (74-106) Chloride Level 109 MEQ/L (98-107) Estimat Glomerular Filtration Rate 56 ML/MIN (>89) Troponin I LESS THAN 0.02 NG/ML Last 24 hours Impressions Chest X-Ray 09/02/17 1401 Signed Impressions: Service Date/Time: Saturday, September 02, 2017 14:06 - CONCLUSION: 1. No acute cardiopulmonary disease. Michael Monique MD Differential Diagnosis ACS versus dysrhythmias versus cost can neuritis versus anxiety attack Narrative Course She is currently chest pain-free in the ER. Lab work and cardiac enzymes are negative. Chest x-ray and EKG did not show any signs of acute processes. My plan would be to admit the patient for further evaluation a chest pain episode. Case is discussed with Dr. Farley for observation admission to chest pain center. Diagnosis Primary Impression: Chest pain Admitting Information Admitting Physician Requests: Admit Mynor Gonzales MD Sep 02, 2017 14:06
[2017-09-02] MEDS ORDERED: SODIUM CHLORIDE 0.9% FLUSH 10 ML FLUSH IVF PRN (14:15)
--- NOTE | 2017-09-02 14:19 | RADRPT ---
EXAM DATE/TIME: 09/02/2017 14:06 [facility] COMPARISON: No previous studies available for comparison. INDICATIONS : Chest pain MEDICAL HISTORY : Hypertension. Hypercholesterolemia. SURGICAL HISTORY : None. ENCOUNTER: Initial ACUITY: 1 day PAIN SCORE: 3/10 LOCATION: Bilateral chest FINDINGS: A single view of the chest demonstrates the lungs to be symmetrically aerated without evidence of mas s, infiltrate or effusion. The cardiomediastinal contours are unremarkable. Osseous structures are intact. CONCLUSION: 1. No acute cardiopulmonary disease. Michael Monique MD on September 02, 2017 at 14:17 Board Certified Radiologist. This report was verified electronically.
[2017-09-02 14:49] LABS: CHLORIDE 109 MEQ/L (98-107); POTASSIUM 4.3 MEQ/L (3.5-5.1); SODIUM (NA) 143 MEQ/L (136-145)
[2017-09-02 14:53] LABS: ANION GAP 5 MEQ/L (5-15); BICARBONATE 28.7 MEQ/L (21.0-32.0); BLOOD UREA NITROGEN 29 MG/DL (7-18); MAGNESIUM 1.9 MG/DL (1.5-2.5)
[2017-09-02 14:56] LABS: GLOMERULAR FILTRATION RATE 56 ML/MIN (>89)
[2017-09-02 14:59] LABS: CREATINE KINASE 106 U/L (26-192)
[2017-09-02 15:05] LABS: AUTOMATED NEUTROPHIL # 3.6 TH/MM3 (1.8-7.7); BASOPHIL % 0.4 % (0.0-2.0); EOSINOPHIL # 0.1 TH/MM3 (0-0.4); EOSINOPHIL % 2.2 % (0.0-4.0); HEMATOCRIT 40.7 % (35.0-46.0); HEMO FLAGS DIFF FINAL; LYMPH % 21.7 % (9.0-44.0); LYMPHOCYTE # 1.2 TH/MM3 (1.0-4.8); MEAN CORPUSCULAR HEMOGLOBIN 29.1 PG (27.0-34.0); MEAN CORPUSCULAR HGB CONC 34.3 % (32.0-36.0); MONO % 9.4 % (0.0-8.0); NEUT % 66.3 % (16.0-70.0); PLATELET COUNT 183 TH/MM3 (150-450); RED BLOOD COUNT 4.78 MIL/MM3 (4.00-5.30); RED CELL DISTRIBUTION WIDTH 12.8 % (11.6-17.2); WHITE BLOOD COUNT 5.4 TH/MM3 (4.0-11.0)
[2017-09-02 15:11] LABS: CKMB 2.4 NG/ML (0.5-3.6)
[2017-09-02 15:17] LABS: APTT (PATIENT) 21.7 SEC (24.3-30.1); PROTHROMBIN TIME - PATIENT 11.5 SEC (9.8-11.6)
--- NOTE | 2017-09-02 16:39 | EKG ---
Date Performed: 09/02/2017 Time Performed: 13:17:42 PTAGE: 82 years EKG: Sinus rhythm MARKED LEFT AXIS DEVIATION ABNORMAL ECG No significant change from prior electrocardiogram. PREVIOUS TRACING : 07/02/2017 11.19 DOCTOR: Evgeny Singleton Interpretating Date/Time 09/02/2017 16:38:57
--- NOTE | 2017-09-02 17:40 | HHI.HP ---
[facility] Primary [facility] Physician Yann Nunez MD Admission Diagnosis chest pain Diagnoses: (1) Chest pain Diagnosis: Principal Chief Complaint: Chest pain Travel History International Travel<30 Days: No Contact w/Intl Traveler <30 Da: No Traveled to Known Affected Are: No History of Present Illness 82-year-old female with known history of hypertension, diabetes who presented to hospital because of chest pain. Patient states that she drove herself to her sister's to say goodbye to her nephew this morning and then she went to [employer] this shopping on her way home she had a sudden onset of midsternal chest discomfort which he describes it as a heaviness with radiation to the lower part of her neck. He states that between a mouse and an elephant her heaviness was the weight of a garrido. She denied any nausea, vomiting, shortness of breath, dyspnea. She indicates the pain lasted for approximately 1 minute and resolved. Because of the sudden onset of the pain she came to emergency department for evaluation. Pain had already resolved by time she got here. Patient had workup done emergency department and was unremarkable for any acute coronary event. Is recommended by the ER physician the patient be observed in the chest pain center for further evaluation and management. Review of Systems Cardiovascular: COMPLAINS OF: Chest pain Except as stated in HPI: all other systems reviewed are Neg Past Family Social History Past Medical History Hypertension Hyperlipidemia Diabetes Past Surgical History Tonsillectomy Appendectomy Hysterectomy Lumbar fusion Bladder repair Multiple hernia repairs Reported Medications Reported Meds & Active Scripts Active Reported Tramadol (Tramadol HCl) 50 Mg Tab 50 Mg PO Q6H PRN Imodium A-D (Loperamide HCl) 2 Mg Capsule 2 Mg PO DIRECTED PRN One capsule after each loose stool. Not to exceed 8 tablets per day. Aleve Arthritis (Naproxen Sodium) 220 Mg Tab 220 Mg PO BID PRN Vitamin B-12 ER (Cyanocobalamin) 2,000 Mcg Tab 2,500 Mcg PO DAILY Iron (Ferrous Sulfate) 325 Mg Cap 65 Mg PO DAILY Multiple Vitamin 1 Tab 1 Tab PO DAILY Oxybutynin ER 24 HR (Oxybutynin Chloride) 10 Mg Tab 10 Mg PO DAILY Trazodone (Trazodone HCl) 50 Mg Tab 50 Mg PO HS Restasis Opth 0.05% (Cyclosporine Opth 0.05%) 0.05% Emul 2 Drop EACH EYE BID Calcium 1000 + D (Calcium Carbonate-Cholecalciferol) 1,000-800 Mg-Unit Tab 1 Tab PO BID Ocuvite (Multiple Vitamins W/ Minerals) 1 Tab 1 Tab PO DAILY Meloxicam 15 Mg Tab 150 Mg PO DAILY Aspirin 81 Low Dose (Aspirin) 81 Mg Chew 81 Mg CHEW DAILY Lisinopril 20 Mg Tab 40 Mg PO DAILY Hyoscyamine ER 12 HR (Hyoscyamine Sulfate) 0.375 Karli 0.375 Mg PO BID Alendronate (Alendronate Sodium) 70 Mg Tab 70 Mg PO Q7D Clonazepam 0.5 Mg Tab 0.5 Mg PO DAILY Atorvastatin (Atorvastatin Calcium) 10 Mg Tab 10 Mg PO HS Amlodipine (Amlodipine Besylate) 5 Mg Tab 5 Mg PO DAILY Losartan (Losartan Potassium) 50 Mg Tab 50 Mg PO DAILY Allergies: Coded Allergies: hydrocodone (Unverified Allergy, Severe, Nausea/Vomiting, 09/02/17) morphine (Unverified Allergy, Severe, VOMITING, 09/02/17) shellfish derived (Unverified Allergy, Severe, VOMITING, 09/02/17) lactose (Unverified Allergy, Intermediate, Diarrhea, 09/02/17) *MDRO Multi-Drug Resistant Organism (Verified Allergy, Unknown, 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 codeine (Unverified Adverse Reaction, Severe, Nausea/Vomiting, 09/02/17) Family History Reviewed is significant for mother from heart disease and stroke, father from cancer, sister and brother from heart disease Social History Patient denies any tobacco, alcohol or illicit drugs Physical Exam Vital Signs Vital Signs Date Time Temp Pulse Resp B/P (MAP) Pulse Ox O2 Delivery O2 Flow Rate FiO2 09/02/17 16:57 66 16 161/62 (95) 97 Room Air 09/02/17 15:50 60 18 172/73 (106) 96 Room Air 09/02/17 15:47 96 Room Air 09/02/17 15:05 142/64 (90) 140/62 (88) 09/02/17 14:05 96 Room Air 09/02/17 14:02 68 16 132/61 (84) 96 Room Air 09/02/17 14:02 96 Room Air 09/02/17 13:30 98.0 72 16 111/56 (74) 96 Physical Exam GENERAL: Well-developed, well-nourished, in no acute distress. alert and orientated HEENT: Head is normocephalic without any lesions or masses noted. Facial features are symmetric. Eyes: Pupils equal round reactive to light. Extraocular muscles are intact. Conjunctivae were clear. Oropharyngeal: Pharynx without any erythema edema. Tongue is midline without deviation. Buccal mucosa is moist without any masses or lesions NECK: Supple without any masses. Trachea midline no deviation. No JVD, no bruits are appreciated CARDIAC: Regular rhythm, regular rate. S1/S2 are heard. No murmurs gallops or rubs. LUNGS: Clear to auscultation bilaterally. No wheeze, rhonchi or rales. No use of accessory muscles on inspiration or expiration. ABDOMEN: Soft, nontender. Nondistended. Bowel sounds heard in all 4 quadrants. No organomegaly or masses. Negative rebound, negative guarding EXTREMITIES: No edema, pulses are equal bilaterally. No cyanosis or clubbing NEUROLOGY: Mood and affect appear appropriate. Cranial nerves II through XII grossly intact. Muscle strength 5/5 in upper and lower extremities bilaterally. Deep tendon reflexes are 2+ in upper and lower extremities bilaterally. Laboratory Laboratory Tests Test 09/02/17 14:15 White Blood Count 5.4 Red Blood Count 4.78 Hemoglobin 13.9 Hematocrit 40.7 Mean Corpuscular Volume 85.0 Mean Corpuscular Hemoglobin 29.1 Mean Corpuscular Hemoglobin Concent 34.3 Red Cell Distribution Width 12.8 Platelet Count 183 Mean Platelet Volume 10.5 Neutrophils (%) (Auto) 66.3 Lymphocytes (%) (Auto) 21.7 Monocytes (%) (Auto) 9.4 Eosinophils (%) (Auto) 2.2 Basophils (%) (Auto) 0.4 Neutrophils # (Auto) 3.6 Lymphocytes # (Auto) 1.2 Monocytes # (Auto) 0.5 Eosinophils # (Auto) 0.1 Basophils # (Auto) 0.0 CBC Comment DIFF FINAL Differential Comment Prothrombin Time 11.5 Prothromb Time International Ratio 1.0 Activated Partial Thromboplast Time 21.7 Blood Urea Nitrogen 29 Creatinine 0.95 Random Glucose 116 Calcium Level 9.4 Magnesium Level 1.9 Sodium Level 143 Potassium Level 4.3 Chloride Level 109 Carbon Dioxide Level 28.7 Anion Gap 5 Estimat Glomerular Filtration Rate 56 Total Creatine Kinase 106 Creatine Kinase MB 2.4 Troponin I LESS THAN 0.02 Result Diagram: 09/02/17 1415 09/02/17 1415 Imaging Last Impressions Chest X-Ray 09/02/17 1401 Signed Impressions: Service Date/Time: Saturday, September 02, 2017 14:06 - CONCLUSION: 1. No acute cardiopulmonary disease. MD Hilary Oviedo VTE Risk Assessment Hilary VTE Risk Assessment: Mod/High Risk (score >= 2) Caprini Risk Assessment Model Point Value = 1 Point Value = 2 Point Value = 3 Point Value = 5 Age 41-60 Minor surgery BMI > 25 kg/m2 Swollen legs Varicose veins or History of unexplained or recurrent spontaneous Oral contraceptives or hormone replacement Sepsis (< 1 month) Serious lung disease, including pneumonia (< 1 month) Abnormal pulmonary function Acute myocardial infarction Congestive heart failure (< 1 month) History of inflammatory bowel disease Medical patient at bed rest Age 61-74 Arthroscopic surgery Major open surgery (> 45 min) Laparoscopic surgery (> 45 min) Malignancy Confined to bed (> 72 hours) Immobilizing plaster cast Central venous access Age >= 75 History of VTE Family history of VTE Factor V Leiden Prothrombin [id number] Lupus anticoagulant Anticardiolipin antibodies Elevated serum homocysteine Heparin-induced thrombocytopenia Other congenital or acquired thrombophilia Stroke (< 1 month) Elective arthroplasty Hip, pelvis, or leg fracture Acute spinal cord injury (< 1 month) Prophylaxis Regimen Total Risk Factor Score Risk Level Prophylaxis Regimen 0-1 Low Early ambulation 2 Moderate Order ONE of the following: *Sequential Compression Device (SCD) *Heparin 5000 units SQ BID 3-4 Higher Order ONE of the following medications: *Heparin 5000 units SQ TID *Enoxaparin/Lovenox 40 mg SQ daily (WT < 150 kg, CrCl > 30 mL/min) *Enoxaparin/Lovenox 30 mg SQ daily (WT < 150 kg, CrCl > 10-29 mL/min) *Enoxaparin/Lovenox 30 mg SQ BID (WT < 150 kg, CrCl > 30 mL/min) AND/OR *Sequential Compression Device (SCD) 5 or more Highest Order ONE of the following medications: *Heparin 5000 units SQ TID (Preferred with Epidurals) *Enoxaparin/Lovenox 40 mg SQ daily (WT < 150 kg, CrCl > 30 mL/min) *Enoxaparin/Lovenox 30 mg SQ daily (WT < 150 kg, CrCl > 10-29 mL/min) *Enoxaparin/Lovenox 30 mg SQ BID (WT < 150 kg, CrCl > 30 mL/min) AND *Sequential Compression Device (SCD) Assessment and Plan Assessment and Plan Chest pain - Patient with increased risk factors include age, hypertension, hyperlipidemia , family history of heart disease - We'll continue to rule patient out for any acute coronary event with serial cardiac enzymes and serial EKGs - Continue aspirin, nitroglycerin as needed, tramadol as needed for pain control - Start oxygen - Obtain fasting lipid panel - The patient ruled out for acute coronary event will pursue chemical stress test rule out any underlying ischemia Hypertension, hyperlipidemia - Continue home medications Diabetes, diet controlled -1800-calorie diabetic diet DVT prevention - Sequential compression devices Problem Qualifiers (1) Chest pain: Qualified Codes: R07.9 - Chest pain, unspecified Alvin Alexander Sep 02, 2017 17:40
[2017-09-02] MEDS ORDERED: traMADol HCL 50 MG TAB PO PRN (17:45)
[2017-09-02] MEDS ORDERED: ONDANSETRON HCL 4 MG/2 ML VIAL IV PUSH PRN (17:45)
[2017-09-02] MEDS ORDERED: ACETAMINOPHEN 500 MG CPLT PO PRN (17:45)
[2017-09-02] MEDS ORDERED: SODIUM CHLORIDE 0.9% FLUSH 10 ML FLUSH IV FLUSH PRN (17:45)
[2017-09-02] MEDS ORDERED: TOLTERODINE TARTRATE 4 MG CAP LA PO SCH (18:30)
[2017-09-02 18:36] LABS: CREATINE KINASE 86 U/L (26-192)
--- NOTE | 2017-09-02 19:02 | EKG ---
Date Performed: 09/02/2017 Time Performed: 17:59:48 PTAGE: 82 years EKG: SINUS BRADYCARDIA WITH FIRST DEGREE AV BLOCK MARKED LEFT AXIS DEVIATION ABNORMAL ECG No sig nificant change from prior electrocardiogram. PREVIOUS TRACING : 09/02/2017 13.17 DOCTOR: Evgeny Singleton Interpretating Date/Time 09/02/2017 19:01:55
[2017-09-02] MEDS: SODIUM CHLORIDE 0.9% FLUSH 10 ML FLUSH IV FLUSH SCH (20:31)
[2017-09-02] MEDS ORDERED: ATORVASTATIN 10 MG TAB PO SCH (21:00)
[2017-09-02] MEDS ORDERED: CYCLOSPORINE OPTH 0.05% EACH EYE SCH (21:00)
[2017-09-02] MEDS ORDERED: traZODone HCL 50 MG TAB PO SCH (21:00)
[2017-09-02 21:50] LABS: CREATINE KINASE 87 U/L (26-192)
[2017-09-03] VITALS: BP 127/60; PULSE 60; RESP 16; TEMP 97.6; O2SAT 95
[2017-09-03 04:00] VITALS: BP 118/60; PULSE 55; RESP 16; TEMP 97.7; O2SAT 95
--- NOTE | 2017-09-03 05:15 | EKG ---
Date Performed: 09/02/2017 Time Performed: 21:07:21 PTAGE: 82 years EKG: SINUS BRADYCARDIA WITH FIRST DEGREE AV BLOCK MARKED LEFT AXIS DEVIATION ABNORMAL ECG No sig nificant change from prior electrocardiogram. PREVIOUS TRACING : 09/02/2017 17.59 DOCTOR: Evgeny Singleton Interpretating Date/Time 09/03/2017 05:12:57
[2017-09-03 07:56] VITALS: PULSE 61
[2017-09-03 08:00] VITALS: BP 149/75; PULSE 63; RESP 12; TEMP 96.4; O2SAT 97
[2017-09-03] MEDS ORDERED: LOSARTAN 50 MG TAB PO SCH (09:00)
[2017-09-03] MEDS ORDERED: ASPIRIN 81 MG CHEW TAB CHEW SCH (09:00)
[2017-09-03] MEDS ORDERED: FERROUS SULFATE 325 MG (65 MG ELEMENTAL IRON) TAB PO SCH (09:00)
[2017-09-03] MEDS ORDERED: amLODIPine BESYLATE 5 MG TAB PO SCH (09:00)
[2017-09-03] MEDS ORDERED: LISINOPRIL 20 MG TAB PO SCH (09:00)
[2017-09-03] MEDS ORDERED: clonazePAM 0.5 MG TAB PO SCH (09:00)
[2017-09-03] MEDS ORDERED: TOLTERODINE TARTRATE 4 MG CAP LA PO SCH (09:00)
[2017-09-03] MEDS ORDERED: REGADENOSON INJ 0.4 MG/5 ML SYR IV ONE (09:35)
[2017-09-03 10:16] LABS: HDL CHOLESTEROL 51.8 MG/DL (40.0-60.0)
[2017-09-03] MEDS: SODIUM CHLORIDE 0.9% FLUSH 10 ML FLUSH IV FLUSH SCH (10:39)
--- NOTE | 2017-09-03 11:24 | RADRPT ---
EXAM DATE/TIME: 09/03/2017 09:24 [facility] COMPARISON: MYOCARDIAL PERF PHARM SPECT, GATED W/EF, April 26, 2011, 9:00. INDICATIONS : Midsternal chest pain. Angina. DOSE: 25.8 mCi Tc99m Myoview at stress. 8.2 mCi Tc99m Myoview at rest. 0.4 mg Lexiscan STRESS SYMPTOMS: Chest pressure. EJECTION FRACTION: > 70% MEDICAL HISTORY : Hypertension. Diabetes mellitus type 2. SURGICAL HISTORY : Inguinal hernia repair. Hysterectomy. Right shoulder surgery. ENCOUNTER: Initial ACUITY: 1 day PAIN SCALE: 3/10 LOCATION: Midsternal chest TECHNIQUE: The patient underwent pharmacologic stress with infusion of prescribed dose. Continuous ECG tracing was monitored during stress. Gated SPECT imaging was performed after stress and conventional SPECT i maging was performed at rest. The examination was performed on a SPECT/CT scanner, both attenuation and non-corrected datasets were reviewed. FINDINGS: DISTRIBUTION: The maximum perfused segment at stress is in the septal wall. PERFUSION STUDY: The pattern of perfusion at stress is within normal limits. GATED STUDY: There is intact wall motion and thickening without hypokinetic or dyskinetic segments. CONCLUSION: Stable exam appearance with no significant fixed or vertebral perfusion abnormalities. Satisfactory L V function. RISK CATEGORY: Low (<1% Annual Mortality Rate) Wero Johnson MD on September 03, 2017 at 11:16 Board Certified Radiologist. This report was verified electronically.
--- NOTE | 2017-09-03 11:41 | HHI.DS ---
Discharge Summary Admission Date Sep 02, 2017 at 15:39 Discharge Date: Sep 03, 2017 Admitting Diagnosis chest pain (1) Chest pain ICD Code: R07.9 - Chest pain, unspecified Diagnosis: Principal Status: Acute Procedures None Brief History - From Admission 82-year-old female with known history of hypertension, diabetes who presented to hospital because of chest pain. Patient states that she drove herself to her sister's to say goodbye to her nephew this morning and then she went to [employer] this shopping on her way home she had a sudden onset of midsternal chest discomfort which he describes it as a heaviness with radiation to the lower part of her neck. He states that between a mouse and an elephant her heaviness was the weight of a garrido. She denied any nausea, vomiting, shortness of breath, dyspnea. She indicates the pain lasted for approximately 1 minute and resolved. Because of the sudden onset of the pain she came to emergency department for evaluation. Pain had already resolved by time she got here. Patient had workup done emergency department and was unremarkable for any acute coronary event. Is recommended by the ER physician the patient be observed in the chest pain center for further evaluation and management. CBC/BMP: 09/02/17 1415 09/02/17 1415 Significant Findings Laboratory Tests Test 09/02/17 14:15 09/02/17 17:55 09/02/17 21:10 09/03/17 05:47 Monocytes (%) (Auto) 9.4 % (0.0-8.0) Activated Partial Thromboplast Time 21.7 SEC (24.3-30.1) Blood Urea Nitrogen 29 MG/DL (7-18) Random Glucose 116 MG/DL (74-106) Chloride Level 109 MEQ/L (98-107) Estimat Glomerular Filtration Rate 56 ML/MIN (>89) Troponin I LESS THAN 0.02 NG/ML LESS THAN 0.02 NG/ML LESS THAN 0.02 NG/ML Cholesterol Level 107 MG/DL (120-200) Imaging Last Impressions Myocardial Perfusion Scan Nuc Med 09/03/17 0600 Signed Impressions: Service Date/Time: August 09:24 - CONCLUSION: Stable exam appearance with no significant fixed or vertebral perfusion abnormalities. Satisfactory LV function. RISK CATEGORY: Low (<1%% Annual Mortality Rate) Wero Johnson MD Chest X-Ray 09/02/17 1401 Signed Impressions: Service Date/Time: Saturday, September 02, 2017 14:06 - CONCLUSION: 1. No acute cardiopulmonary disease. Michael Monique MD Hospital Course 82-year-old female with known history of hypertension, diabetes who presented to the hospital originally because of chest discomfort. She states that she was driving and developed a short span of chest discomfort located in the middle part of chest which she described as a heaviness that lasted for approximately 1 minute patient indicates that the pain resolved on its own by time she got to the emergency department and she did have a workup done at that time and was unremarkable for any acute coronary event. Patient was recommended observation in the chest pain center. Patient undergo serial cardiac enzyme which were negative, serial EKGs which were reviewed and did not show any changes. Patient did undergo a chemical stress test which did not indicate any underlying ischemia, low risk with preserved left ventricular function. Patient has not had any recurrent chest discomfort. Patient clinically stable this time. Discussed all results with patient and answered all of her questions. Will plan discharge accordingly. Pt Condition on Discharge: Stable Discharge Disposition: Discharge Home Discharge Time: > 30 minutes Discharge Instructions DIET: Follow Instructions for: Heart Healthy Diet Activities you can perform: Regular-No Restrictions Activities to Avoid: Driving for 24 hrs Follow up Referrals: PCP Follow-up - 1 Week Continued Medications: Alendronate (Alendronate) 70 Mg Tab 70 MG PO Q7D for Osteporosis Treatment, #4 TAB 0 Refills Amlodipine (Amlodipine) 5 Mg Tab 5 MG PO DAILY for Blood Pressure Management, #30 TAB 0 Refills Aspirin (Aspirin 81 Low Dose) 81 Mg Chew 81 MG CHEW DAILY, #30 TAB Atorvastatin (Atorvastatin) 10 Mg Tab 10 MG PO HS for Cholesterol Management, #30 TAB 0 Refills Calcium Carbonate-Cholecalciferol (Calcium 1000 + D) 1,000-800 Mg-Unit Tab 1 TAB PO BID, TAB Clonazepam (Clonazepam) 0.5 Mg Tab 0.5 MG PO DAILY, #60 TAB 0 Refills Cyanocobalamin ER (Vitamin B-12 ER) 2,000 Mcg Tab 2500 MCG PO DAILY for Nutritional Supplement, BOTTLE 0 Refills Cyclosporine Opth 0.05% (Restasis Opth 0.05%) 0.05% Emul 2 DROP EACH EYE BID for Dry Eye, #1 BOX 0 Refills Ferrous Sulfate (Iron) 325 Mg Cap 65 MG PO DAILY for Nutritional Supplement, TAB 0 Refills Hyoscyamine ER 12 HR (Hyoscyamine ER 12 HR) 0.375 Karli 0.375 MG PO BID for Gastrointestinal disorders, TAB 0 Refills Lisinopril (Lisinopril) 20 Mg Tab 40 MG PO DAILY, #30 TAB 0 Refills Loperamide (Imodium A-D) 2 Mg Capsule 2 MG PO DIRECTED PRN for DIARRHEA, CAP 0 Refills One capsule after each loose stool. Not to exceed 8 tablets per day. Losartan (Losartan) 50 Mg Tab 50 MG PO DAILY for Blood Pressure Management, #30 TAB 0 Refills Meloxicam (Meloxicam) 15 Mg Tab 150 MG PO DAILY for Arthritis Pain, #30 TAB 0 Refills Multiple Vitamin (Multiple Vitamin) 1 Tab 1 TAB PO DAILY for Nutritional Supplement, TAB 0 Refills Multiple Vitamins W/ Minerals (Ocuvite) 1 Tab 1 TAB PO DAILY for Nutritional Supplement, TAB 0 Refills Naproxen Sodium (Aleve Arthritis) 220 Mg Tab 220 MG PO BID PRN for PAIN SCALE 1 TO 10, TAB Oxybutynin ER 24 HR (Oxybutynin ER 24 HR) 10 Mg Tab 10 MG PO DAILY for Overactive Bladder, TAB 0 Refills Tramadol (Tramadol) 50 Mg Tab 50 MG PO Q6H PRN for PAIN, TAB 0 Refills Trazodone (Trazodone) 50 Mg Tab 50 MG PO HS for Control Depression, TAB 0 Refills Alvin Alexander Sep 03, 2017 11:41
--- NOTE | 2017-09-03 11:41 | HHI.DCPOC ---
Discharge Care Plan Diagnosis: (1) Chest pain Your Health Problems Are: Chest Pain Goals to Promote Your Health * To prevent worsening of your condition and complications * To maintain your health at the optimal level Directions to Meet Your Goals Take your medications as prescribed Follow your dietary instruction Follow activity as directed Keep your appointments as scheduled Take your immunizations and boosters as scheduled If your symptoms worsen call your PCP, if no PCP go to Urgent Care Center or Emergency Room Smoking is Dangerous to Your Health. Avoid second hand smoke Call the 24-hour hour crisis hotline for domestic abuse at Alvin Alexander Sep 03, 2017 11:41
[2017-09-03 12:00] VITALS: BP 189/96; PULSE 69; RESP 16; TEMP 96; O2SAT 95
--- NOTE | 2017-09-03 18:25 | TR ---
Date Performed: 09/03/2017 Time Performed: 09:50:00 DOCTOR: Collette Hendricks DRUG LIST: CLINICAL HISTORY: REASON FOR TEST: REASON FOR ENDING: OBSERVATION: CONCLUSION: Lexiscan stress test was performed under standard four minute protocol. Radionuclid e was injected one minute prior to ending the test. No electrocardiographic abormalities were present to suggest ischemia. Nuclear imaging and interpretation are pending. COMMENTS:
== END 2017-09-03 14:22 | disposition home or self-care (01) ==
LOC: PHED 13:08 → PHEDA 15:39 → PH3B 17:16
PROVIDERS: ADMIT Hospitalist; ATTEND Hospitalist
DX: R07.89 Other chest pain (principal); R00.1 Bradycardia, unspecified; I44.0 Atrioventricular block, first degree; R94.31 Abnormal electrocardiogram [ECG] [EKG]; I20.9 Angina pectoris, unspecified; I10 Essential (primary) hypertension; E78.00 Pure hypercholesterolemia, unspecified; E11.9 Type 2 diabetes mellitus without complications; K58.9 Irritable bowel syndrome, unspecified; F41.9 Anxiety disorder, unspecified; M19.90 Unspecified osteoarthritis, unspecified site; H91.93 Unspecified hearing loss, bilateral; Z79.82 Long term (current) use of aspirin; Z79.899 Other long term (current) drug therapy
CPT/HCPCS: 71010; 78452; 80048; 80061; 82550; 82552; 83735; 84484; 85025; 85610; 85730; 93005; 93017; 99285; A9502; G0378; J2785

== ENCOUNTER → 2017-09-21 | Day surgery (SDC) | payer MEDICARE ==
--- NOTE | 2017-09-16 08:32 | MH ---
cc: DON DOMÍNGUEZ M.D. DATE OF ADMISSION: 09/21/2017 ADMISSION DIAGNOSIS Cataract left eye. HISTORY OF PRESENT ILLNESS This 82-year-old white female is coming through [facility] for the purpose of a lens extraction of the left eye with intraocular lens implant under local anesthesia. She has noted decreasing visual acuity interfering with her daily activities and has elected to have the above procedure. She had a similar procedure in the right eye in June, did well postoperatively and now requests cataract surgery for her left eye. Her best corrected visual acuity is 20/30 in each eye. 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 Burton, her retina specialist. She has some mild nonproliferative diabetic retinopathy. OTHER PAST MEDICAL HISTORY 1. She has a history of hypertension. 2. Arthritis. 3. Allergies. 4. Back problems. 5. Right shoulder problems. 6. Cholesterol problems. 7. Food poisoning. PAST SURGICAL HISTORY 1. Tonsillectomy. 2. Appendectomy. 3. Hysterectomy. 4. Hernia procedure. 5. Bowel procedure twice. 6. Right knee arthroscopic surgery. 7. Urinary surgery. 8. Surgery for a torn ligament in the right shoulder. 9. Right knee surgery a second time. DAILY MEDICATIONS 1. Losartan. 2. Amlodipine. 3. Atorvastatin. 4. Clonazepam. 5. Alendronate. 6. Hysciamine. 7. Lisinopril. 8. Baby aspirin. 9. Meloxicam. 10. Ocuvite. 11. Cetirizine. 12. Multivitamins. 13. Calcium with D. 14. Iron. 15. Vitamins. 16. B12. 17. Restasis eye drops twice a day for dry eyes. 18. Aleve. 19. Imodium. 20. Zyrtec p.r.n. 21. Zolpidem. 22. Trazodone. 23. Tramadol. 24. Oxybutynin. ALLERGIES CODEINE AND DERIVATIVES. HYDROCODONE. LOBSTER. DAIRY PRODUCTS. SOCIAL HISTORY She does not smoke or drink. FAMILY HISTORY Positive for mother and sister with cataracts. REVIEW OF SYSTEMS HEAD: Patient denies severe headaches, dizziness or recent head injury. EARS: Patient has some hearing loss. She denies ear pain, discharge or ringing in the ears. NOSE: Patient denies nasal discharge, obstruction or frequent colds. MOUTH AND THROAT: Patient denies soreness of the mouth or tongue, bleeding gums, trouble swallowing, changes in voice or sore throat. NECK: Patient denies neck pain or swelling, limitation of neck movement or neck injury. CARDIOPULMONARY SYSTEM: Patient denies shortness of breath, orthopnea, chronic cough, sputum production, hemoptysis, chest pain, wheezing, palpitations or light-headedness. GI SYSTEM: Patient has poor appetite and hemorrhoids. She denies nausea, vomiting, abdominal pain, ulcers or change in bowel habits. SYSTEM: The patient has urinary frequency and gets up once at night to urinate. Denies dysuria, change in urine color. NERVOUS SYSTEM: Patient denies convulsions, vertigo, stroke, numbness or weakness. PHYSICAL EXAMINATION VITAL SIGNS: Blood pressure is 132/74, pulse 84, respirations 18. Head: Normocephalic, atraumatic. Nose: Without rhinorrhea. THROAT: Clear. Neck: Supple. CHEST: Clear. ABDOMEN: Without tenderness. EXTREMITIES: Without edema. NEUROLOGIC: Within normal limits. MENTAL STATUS: Within normal limits. EYE EXAMINATION The patient's best corrected visual acuity is 20/30 -2 in each eye. Visual mccollum are full to confrontation testing. Extraocular muscle exam reveals full versions with orthophoria at distance and near. Pupils are 3.5 mm equal, round, reactive to light without afferent defect. 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 There is a posterior chamber intraocular lens in place in that right eye and nuclear sclerotic and cortical cataract present in the left eye. The intraocular pressure is 16 in the right eye and 21 in the left by applanation tonometry. Dilated fundus exam revealed sharp disks with cup-to-disk ratio of 0.35 in the right eye and 0.5 in the left. There is some granularity in the macula of each eye. A posterior vitreous detachment is present bilaterally. IMPRESSION 1. Cataract left eye. 2. Pseudophakia right eye. 3. Status post branch retinal vein occlusion right eye. 4. 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 5. Posterior vitreous detachment both eyes PLAN The plan is lens extraction of the left eye with intraocular lens implant under local anesthesia through [facility]. The patient has been cleared medically. She has been counseled as to the risks, benefits and alternatives and has elected to proceed. I feel that cataract surgery will improve the quality of life and activities of daily living in this patient. MD BERNABE Maxwell/[place] /8:05 AM /8:19 AM
[~2017-09-21] VITALS: Ht 162.6 cm; Wt 69.5 kg
[~2017-09-21] MED LIST changes: +ACETYLCHOLINE CHL OPHT SOLN 1:100 2 ML VIAL ONE; -CETI10 PO; +CHLORHEXIDINE GLUCONATE 2 % 1 PACK (2 CLOTHS) TOPICAL PRN; +EPINEPHrine HCL PF/SF (1:1000) 1 MG/ML AMP I-OCULAR ONE; +HYALURONIDASE/LIDOCAINE/BUPIVACAINE 5 ML SYR LEFT EYE ONE; +HYALURONIDASE/LIDOCAINE/BUPIVACAINE 5 ML SYR LEFT EYE PRN; +LACTATED RINGER'S 1000 ML IV PRN; +METOPROLOL TARTRATE 25 MG TAB PO PRN; +PILOCARPINE HCL 2% OPHT SOLN 15 ML BTL ONE; +POVIDONE IODINE 5% (ANTISEPSIS KIT) 4 APPLICATIONS EACH NARE PRN; +PROPARACAINE HCL 0.5% OPHT SOLN 15 ML BTL LEFT EYE ONE; +PROPOFOL 200 MG/20 ML AMP ONE; +SODIUM CHLORID 0.9% 500 ML IV PRN; +TOBRAMYCIN/DEXAMETHASONE OPTH OINT 3.5 GM TUBE ONE; +TRAM50TA PO; +VISCOAT OPHT IRRIG SOLN 0.75 ML SYRINGE ONE; -ZOFR4TAB PO
[2017-09-21 07:20] VITALS: PULSE 78
[2017-09-21] MEDS: TROPICAMIDE 1% OPHT SOLN 15 ML BTL LEFT EYE SCH ×4 (07:25→07:34)
[2017-09-21] MEDS: GATIFLOXACIN 0.5% OPHT SOLN 2.5 ML BTL LEFT EYE SCH ×4 (07:25→07:34)
[2017-09-21] MEDS: DICLOFENAC SOD 0.1% OPHT SOLN 2.5 ML BTL LEFT EYE SCH ×4 (07:25→07:34)
[2017-09-21] MEDS: CYCLOPENTOLATE HCL 1% OPHT SOLN 2 ML BTL LEFT EYE SCH ×4 (07:25→07:34)
[2017-09-21] MEDS: PHENYLEPHRINE HCL 2.5% OPTH SOLN 2 ML BTL LEFT EYE SCH ×4 (07:25→07:34)
[2017-09-21 08:00] VITALS: PULSE 71
[2017-09-21 08:30] VITALS: PULSE 72
[2017-09-21 10:15] VITALS: BP 166/83; PULSE 76; RESP 16; TEMP 97.7; O2SAT 99
--- NOTE | 2017-09-21 12:51 | MP ---
cc: DON CARDOSO DATE OF SURGERY 09/21/2017 PREOPERATIVE DIAGNOSIS Cataract left eye. POSTOPERATIVE DIAGNOSIS Cataract left eye. OPERATION Extracapsular cataract extraction with posterior chamber intraocular lens implant by phacoemulsification, left eye. SURGEON Don Cardoso M.D. ANESTHESIA Local COMPLICATIONS None INDICATIONS See history and physical previously dictated. OPERATIVE PROCEDURE The patient had adequate retrobulbar and eyelid blocks administered in the holding area and was brought to the operating room. The left eye was prepped and draped in the usual sterile ophthalmic manner. A lid speculum was inserted in the left eye. A 4-0 silk bridle suture was placed through the conjunctiva near the superior rectus muscle and it was tagged to the drape. A fornix-based conjunctival flap was prepared spanning approximately 5 mm in width. Hemostasis was obtained with wet-field cautery. A 3.5 mm groove was made 1 mm from the limbus and dissected up to the limbus in the form of a scleral pocket incision. A stab incision was then made at the 2 o'clock position. Viscoelastic was injected into the anterior chamber. The anterior chamber was entered with a 2.75 mm keratome through the scleral pocket incision. A 360 degree continuous curvilinear capsulorrhexis was then performed. Hydrodissection was utilized to divide the nucleus into inner and outer components and to separate the cortex from the capsule. Phacoemulsification was then utilized to remove the nucleus. The outer nuclear layer was removed with irrigation and aspiration and short bursts of ultrasound as necessary. The cortex was removed with the irrigation-aspiration hand piece. The posterior capsule was polished with the capsule polisher. Viscoelastic was injected into the capsular bag. The intraocular lens was inspected and found to be in good condition. The lens utilized was a Fredrick, model number SA60AT with a power of +22 diopters. The lens was inserted into the capsular bag. The viscoelastic in the anterior chamber was then removed with the irrigation-aspiration hand piece. Viscoelastic was also removed from beneath the intraocular lens. The anterior chamber was filled with Miochol-E through the stab incision and pressurized. The wound was closed with one interrupted 10-0 nylon suture. The wound was checked for leaks and there were none. The 4-0 bridle suture was removed. The conjunctival flap was brought down over the wound and secured with cautery. Pilocarpine 2% eye drops were instilled topically. The lid speculum was removed. TobraDex ophthalmic ointment was applied. The eye was double patched and shielded. The patient tolerated the procedure well and left the Operating Room in satisfactory condition. MD BERNABE Maxwell/MICHAEL /11:45 AM /12:55 PM
== END | disposition home or self-care (01) ==
LOC: PHSDC 06:40
PROVIDERS: ATTEND Ophthalmology
DX: H26.9 Unspecified cataract (principal)
CPT/HCPCS: 00142; 66984; J0171; J7040; V2632

== ENCOUNTER → 2017-09-24 | Outpatient (CLI) | payer MEDICARE ==
[~2017-09-24] MED LIST changes: -ACETYLCHOLINE CHL OPHT SOLN 1:100 2 ML VIAL ONE; -CHLORHEXIDINE GLUCONATE 2 % 1 PACK (2 CLOTHS) TOPICAL PRN; -EPINEPHrine HCL PF/SF (1:1000) 1 MG/ML AMP I-OCULAR ONE; -FERR325C PO; -HYALURONIDASE/LIDOCAINE/BUPIVACAINE 5 ML SYR LEFT EYE ONE; -HYALURONIDASE/LIDOCAINE/BUPIVACAINE 5 ML SYR LEFT EYE PRN; -LACTATED RINGER'S 1000 ML IV PRN; -METOPROLOL TARTRATE 25 MG TAB PO PRN; -PILOCARPINE HCL 2% OPHT SOLN 15 ML BTL ONE; -POVIDONE IODINE 5% (ANTISEPSIS KIT) 4 APPLICATIONS EACH NARE PRN; -PROPARACAINE HCL 0.5% OPHT SOLN 15 ML BTL LEFT EYE ONE; -PROPOFOL 200 MG/20 ML AMP ONE; -SODIUM CHLORID 0.9% 500 ML IV PRN; -TOBRAMYCIN/DEXAMETHASONE OPTH OINT 3.5 GM TUBE ONE; -VISCOAT OPHT IRRIG SOLN 0.75 ML SYRINGE ONE
[2017-09-24 13:30] LABS: HEMATOCRIT 41.6 % (35.0-46.0); MEAN CELL VOLUME 86.6 FL (80.0-100.0); MEAN CORPUSCULAR HEMOGLOBIN 29.7 PG (27.0-34.0); MEAN CORPUSCULAR HGB CONC 34.3 % (32.0-36.0); PLATELET COUNT 167 TH/MM3 (150-450); RED CELL DISTRIBUTION WIDTH 13.4 % (11.6-17.2); REVIEW FLAG FINAL; WHITE BLOOD COUNT 6.9 TH/MM3 (4.0-11.0)
[2017-09-24 13:34] LABS: ALT (GPT) 21 U/L (10-53); ANION GAP 6 MEQ/L (5-15); AST (GOT) 17 U/L (15-37); BICARBONATE 29.1 MEQ/L (21.0-32.0); BLOOD UREA NITROGEN 18 MG/DL (7-18); CHLORIDE 108 MEQ/L (98-107); GLOMERULAR FILTRATION RATE 79 ML/MIN (>89); GLUCOSE,FASTING 111 MG/DL (74-99); POTASSIUM 4.1 MEQ/L (3.5-5.1); SODIUM (NA) 143 MEQ/L (136-145)
[2017-09-24 13:37] LABS: ALKALINE PHOSPHATASE 104 U/L (45-117); HDL CHOLESTEROL 61.3 MG/DL (40.0-60.0); LDL CHOLESTEROL 78 MG/DL (0-99); LDL CHOLESTEROL DIRECT 99 MG/DL (0-99); TOTAL BILIRUBIN ADULT 0.9 MG/DL (0.2-1.0)
[2017-09-24 18:19] LABS: HEMOGLOBIN A1a 0.8 %; HEMOGLOBIN A1b 1.6 %; HEMOGLOBIN Ao 85.5 %; HEMOGLOBIN P3 3.9 %
== END ==
LOC: PLAB 08:48
PROVIDERS: ATTEND Family Medicine
DX: E11.9 Type 2 diabetes mellitus without complications (principal); E78.5 Hyperlipidemia, unspecified; I10 Essential (primary) hypertension
CPT/HCPCS: 36415; 80053; 80061; 83036; 83721; 85027